=== PATIENT | female | born 1985 | race Caucasian/White ===

== ENCOUNTER 2017-01-23 18:56 | Inpatient (IN) | payer MEDICAID ==
[2017-01-23] MEDS ORDERED: SODIUM CHLORIDE 0.9% 1,000 ML IV ONE (19:19)
[2017-01-23] MEDS ORDERED: ONDANSETRON 4 MG/2 ML VIAL ONE (19:41)
[2017-01-23] MEDS ORDERED: INSULIN REGULAR HUMAN 100 UNIT/1 ML 10 ML MDV SUBQ STA (20:18)
[2017-01-23] MEDS ORDERED: NICOTINE 21 MG PATCH TOP ONE (20:20)
[2017-01-23] MEDS ORDERED: NICOTINE 21 MG PATCH TOP STA (20:23)
[2017-01-23] MEDS ORDERED: SODIUM CHLORIDE FLUSH 0.9% 10 ML SYRINGE IVP PRN (20:27)
[2017-01-23] MEDS ORDERED: INSULIN 70/30 HUMAN 100 UNIT/1 ML 10 ML MDV SUBQ ONE ×2 (20:29→20:33)
[2017-01-23] MEDS ORDERED: INSULIN GLARGINE 300 UNIT/3 ML PEN SUBQ SCH (21:00)
[2017-01-23] MEDS: HEPARIN 5,000 UNIT/ML VIAL SUBQ SCH (21:54)
[2017-01-23] MEDS: INSULIN ASPART 300 UNIT/3 ML PEN SUBQ SCH (21:54)
[2017-01-23] MEDS: SODIUM CHLORIDE 0.9% 1,000 ML IV SCH (21:55)
[2017-01-23] MEDS: SODIUM CHLORIDE FLUSH 0.9% 10 ML SYRINGE IVP SCH (21:56)
[2017-01-24] MEDS ORDERED: INSULIN REGULAR HUMAN 100 UNIT/1 ML 10 ML MDV SUBQ STA (01:11)
[2017-01-24] MEDS ORDERED: INSULIN REGULAR HUMAN 100 UNIT/1 ML 10 ML MDV ONE (01:19)
[2017-01-24] MEDS ORDERED: INSULIN REGULAR HUMAN 100 UNIT/1 ML 10 ML MDV SUBQ SCH (01:45)
[2017-01-24] MEDS: SODIUM CHLORIDE 0.9% 1,000 ML IV SCH ×2 (04:04→10:46)
[2017-01-24] MEDS: SODIUM CHLORIDE FLUSH 0.9% 10 ML SYRINGE IVP SCH ×3 (05:05→20:57)
[2017-01-24] MEDS ORDERED: ACETAMINOPHEN 325 MG TABLET PO PRN (07:57)
[2017-01-24] MEDS: INSULIN ASPART 300 UNIT/3 ML PEN SUBQ SCH ×5 (08:23→21:02)
[2017-01-24] MEDS: HEPARIN 5,000 UNIT/ML VIAL SUBQ SCH ×2 (09:06→20:59)
[2017-01-24] MEDS: POLYETHYLENE GLYCOL 3350 17 GM PACKET PO SCH (09:06)
[2017-01-24] MEDS: CHOLECALCIFEROL 1,000 UNIT TABLET PO SCH (12:02)
[2017-01-24] MEDS ORDERED: INSULIN GLARGINE 300 UNIT/3 ML PEN SUBQ SCH ×2 (16:00→21:00)
[2017-01-24] MEDS ORDERED: POTASSIUM CHLORIDE 20 MEQ TABLET PO STA (16:07)
[2017-01-24] MEDS ORDERED: SODIUM CHLORIDE 0.9% 1,000 ML IV SCH (17:00)
[2017-01-24] MEDS: NICOTINE 21 MG PATCH TOP SCH (20:59)
[2017-01-24] MEDS: CALCIUM CARBONATE CHEW 500 MG TABLET PO SCH (21:00)
[2017-01-24] MEDS: INSULIN GLARGINE 300 UNIT/3 ML PEN SUBQ SCH (21:00)
[2017-01-25] MEDS: SODIUM CHLORIDE FLUSH 0.9% 10 ML SYRINGE IVP SCH (06:12)
[2017-01-25] MEDS ORDERED: POTASSIUM CHLORIDE 20 MEQ TABLET PO SCH (08:00)
[2017-01-25] MEDS: POLYETHYLENE GLYCOL 3350 17 GM PACKET PO SCH (08:12)
[2017-01-25] MEDS: NICOTINE 21 MG PATCH TOP SCH (08:13)
[2017-01-25] MEDS: CHOLECALCIFEROL 1,000 UNIT TABLET PO SCH (08:14)
[2017-01-25] MEDS: CALCIUM CARBONATE CHEW 500 MG TABLET PO SCH (08:14)
[2017-01-25] MEDS: HEPARIN 5,000 UNIT/ML VIAL SUBQ SCH (08:17)
[2017-01-25] MEDS: INSULIN ASPART 300 UNIT/3 ML PEN SUBQ SCH ×4 (08:23→11:57)
[2017-01-25] MEDS: INSULIN GLARGINE 300 UNIT/3 ML PEN SUBQ SCH (08:25)
[2017-01-25] MEDS ORDERED: NICOTINE 21 MG PATCH TOP SCH (20:00)
== END 2017-01-25 13:00 | disposition home or self-care (01) | DRG 638 ==
DX: E11.65 Type 2 diabetes mellitus with hyperglycemia (principal); F15.20 Other stimulant dependence, uncomplicated; E87.1 Hypo-osmolality and hyponatremia; E87.6 Hypokalemia; E86.0 Dehydration; F17.210 Nicotine dependence, cigarettes, uncomplicated

== ENCOUNTER 2017-01-26 15:04 | Outpatient (CLI) | payer MEDICAID | END 2017-01-26 15:05 | disposition home or self-care (01) | DX: E11.65 Type 2 diabetes mellitus with hyperglycemia (principal) ==

== ENCOUNTER 2018-02-20 04:37 | Emergency (ER) | payer MEDICAID ==
--- NOTE | 2018-02-20 04:52 | ED Physician Documentation ---
History of Present Illness - Stated complaint Stated Complaint: LT ARM,LT JAW STIFFNESS - Chief complaint Chief Complaint: Ext Problem - History obtained from History obtained from: Patient - History of Present Illness Timing: How many weeks ago (2-3 weeks but worse past few days) Pain level max: 0 Pain level now: 0 Improved by: no ameliorating factors Worsened by: movement - Additonal information Additional information: c/o few weeks of left elbow and right knee swelling and stiffness without significant pain. she has run out of her lisinopril 5mg rx (she says this was prescribed for "kidney protection" and not high blood pressure), as well as her insulin (she takes both novolog and lantus; she still has some but has not been storing it properly and thus questionable efficacy). 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 HEENT: None Psych: None Musculoskeletal: None Derm: None - Past Surgical History Past Surgical History: No - Present Medications Home Medications: Ambulatory Orders Medication Instructions Recorded Confirmed Blood Sugar Diagnostic [Glucometer 1 each ACHS #100 strip 01/25/17 Strips] Blood-Glucose Meter [Glucometer] 1 each MC DAILY #1 each 01/25/17 Calcium Carbonate [Tums (Calcium 500 mg PO DAILY #30 tablet 01/25/17 Carbonate 500mg)] Insulin Aspart [NovoLOG] 5 unit SUBQ TIDWM #1 pen 01/25/17 Insulin Glargine [Lantus Solostar] 12 unit SUBQ BID #1 pen 01/25/17 Lancets 1 each ACHS #100 each 01/25/17 Nicotine 21 mg Patch [Nicoderm] 1 patch TOP DAILY #28 patch 01/25/17 Insulin Aspart [NovoLOG] 5 unit SUBQ TIDWM #1 pen 02/20/18 Insulin Glargine [Lantus Solostar] 12 unit SUBQ BID #1 pen 02/20/18 Lisinopril 5 mg PO DAILY #30 tablet 02/20/18 - Allergies Allergies/Adverse Reactions: Allergies Allergy/AdvReac Type Severity Reaction Status Date / Time No Known Drug Allergies Allergy Verified 02/20/18 04:48 - Social History Does the pt smoke?: Yes Smoking Status: Current every day smoker Does the pt drink ETOH?: Yes Does the pt have substance abuse?: Yes - Immunizations Immunizations are current?: Yes - POLST Patient has POLST: No PD ED PE NORMAL - Vitals Vital signs reviewed: Yes - General General: Alert and oriented X 3, No acute distress, Well developed/nourished - HEENT HEENT: Moist mucous membranes - Derm Derm: Normal color, Warm and dry, No rash - Extremities Extremities: No tenderness to palpate, Normal ROM s pain, Other (subtle swelling left elbow posterolateral aspect that is nontender and without erythema , crepitus, or hot to touch) - Neuro Neuro: Alert and oriented X 3, No motor deficit, No sensory deficit Results - Vitals Vitals: Oxygen O2 Source Room air - Labs Labs: Laboratory Tests 02/20/18 04:52 POC Whole Bld Glucose 310 H PD MEDICAL DECISION MAKING - ED course Complexity details: considered differential, d/w patient ED course: provided new prescriptions for her lantus, novolog, and lisinopril. FSBS is 310. She had taken a dose of insulin shortly before arriving. She expressed concern that her joint swelling and stiffness is due to high blood sugar and I reassured her that this is not a symptom c/w hyperglycemia. She asked about checking for urine ketones, which is reasonable and thus was ordered. However, she subsequently decided against it and thus order was cancelled. Her HPI and exam do not suggest DKA nor need for emergent testing or treatment. I emphasized the need for her to fill the prescriptions as soon as the pharmacy is open and start taking as prescribed. Departure - Departure Disposition: Home, Self Care Clinical Impression: Hyperglycemia Joint pain Qualifiers: Joint pain location: elbow Laterality: left Qualified Code(s): M25.522 - Pain in left elbow Condition: Good Instructions: ED Joint Pain, ED Hyperglycemia Diabetic Follow-Up: [facility] [Provider Group] [facility] [Provider Group] Prescriptions: Insulin Aspart [NovoLOG] 5 unit SUBQ TIDWM #1 pen Insulin Glargine [Lantus Solostar] 12 unit SUBQ BID #1 pen Lisinopril 5 mg PO DAILY #30 tablet Discharge Date/Time: 02/20/18 05:37
[2018-02-20 05:37] VITALS: BP 110/75
== END 2018-02-20 05:37 | disposition home or self-care (01) ==
LOC: ED 04:37
DX: E11.65 Type 2 diabetes mellitus with hyperglycemia (principal); Z79.4 Long term (current) use of insulin; F17.200 Nicotine dependence, unspecified, uncomplicated; M25.522 Pain in left elbow
CPT/HCPCS: 99283

== ENCOUNTER 2018-09-21 08:00 | Outpatient (CLI) | payer MEDICAID ==
[2018-09-21 12:48] LABS: BASOPHILS % (AUTO) 0.3 %; EOSINOPHILS # (AUTO) 0.2 10^3/uL (0.0-0.7); EOSINOPHILS % (AUTO) 2.6 %; HGB - HEMOGLOBIN 15.5 g/dL (12.0-16.0); LYMPHOCYTES # (AUTO) 3.1 10^3/uL (1.5-3.5); LYMPHOCYTES % (AUTO) 41.4 %; MEAN CORPUSCULAR HEMOGLOBIN 30.2 pg (27.0-31.0); MEAN CORPUSCULAR HGB CONC 33.2 g/dL (32.0-36.0); MEAN CORPUSCULAR VOLUME 90.9 fL (81.0-99.0); MEAN PLATELET VOLUME 8.5 fL (7.9-10.8); MONOCYTES # (AUTO) 0.6 10^3/uL (0.0-1.0); MONOCYTES % (AUTO) 8.3 %; NEUTROPHILS # (AUTO) 3.6 10^3/uL (1.5-6.6); NEUTROPHILS % (AUTO) 47.4 %; PLT - PLATELET COUNT 306 10^3/uL (130-450); RED BLOOD COUNT 5.14 10^6/uL (4.20-5.40); RED CELL DISTRIBUTION WIDTH 13.8 % (12.0-15.0); WHITE BLOOD COUNT 7.6 x10^3/uL (4.8-10.8)
[2018-09-21 12:51] LABS: CALCIUM 9.1 mg/dL (8.5-10.3); CREATININE 0.6 mg/dL (0.4-1.0)
[2018-09-21 14:13] LABS: HB2 TOTAL 16.6 g/dL; HEMOGLOBIN A1C 1.69 g/dL; HEMOGLOBIN A1C % 11.5 % (4.6-6.2)
== END 2018-09-21 23:59 | disposition home or self-care (01) ==
LOC: LAB.N 08:00
PROVIDERS: ATTEND Physician Assistant Medical
DX: Z79.4 Long term (current) use of insulin (principal); R73.9 Hyperglycemia, unspecified
CPT/HCPCS: 36415; 80048; 81599; 83036; 84681; 85025

== ENCOUNTER 2018-12-10 13:58 | Outpatient (CLI) | payer MEDICAID | END 2018-12-10 13:59 | disposition EMS.NT | LOC: EMS 13:58 | PROVIDERS: ATTEND Surgery | DX: Z03.89 Encounter for observation for other suspected diseases and conditions ruled out (principal) ==

== ENCOUNTER 2019-05-01 11:55 | Emergency (ER) | payer MEDICAID ==
[2019-05-01 12:32] LABS: BILIRUBIN,URINE NEGATIVE (NEGATIVE); GLUCOSE, URINE (UA) >=1000 mg/dL (NEGATIVE); KETONES,URINE (UA) 15 mg/dL (NEGATIVE); LEUKOCYTE ESTERASE, URINE NEGATIVE (NEGATIVE); NITRITE,URINE NEGATIVE (NEGATIVE); OCCULT BLOOD,URINE NEGATIVE (NEGATIVE); PH,URINE 5.5 PH (5.0-7.5); PROTEIN,URINE NEGATIVE (NEGATIVE); UROBILINOGEN,URINE 0.2 (NORMAL) E.U./dL (NORMAL)
[2019-05-01 12:34] LABS: CLARITY,URINE CLEAR (CLEAR)
[2019-05-01] MEDS ORDERED: SODIUM CHLORIDE 0.9% 1,000 ML IV ONE (12:47)
[2019-05-01 12:53] LABS: VBG PCO2 46.4 mmHg (41-51); VBG PH 7.318 (7.31-7.41)
[2019-05-01 12:54] LABS: VBG BASE EXCESS -3.1 mmol/L (-2 - +2); VBG PO2 30.3 mmHg (25-47); VBG TOTAL CO2 24.7 mmol/L (24-29)
[2019-05-01 13:03] LABS: CALCIUM 9.5 mg/dL (8.5-10.3); CREATININE 0.7 mg/dL (0.4-1.0)
[2019-05-01] MEDS ORDERED: INSULIN REGULAR HUMAN 100 UNIT/1 ML 10 ML MDV IVP STA (13:06)
[2019-05-01 15:09] VITALS: BP 110/74
--- NOTE | 2019-05-01 15:15 | ED Physician Documentation ---
History of Present Illness - Stated complaint Stated Complaint: MED REFILL - Chief complaint Chief Complaint: General - History obtained from History obtained from: Patient - History of Present Illness Timing: How many days ago (2) Severity Comments: moderate hyperglyemia Quality: no pain Radiates to: no radiation Improved by: nothing Worsened by: not having her insulin Associated symptoms: polyuria, polydypsia, feelings of a dry mouth and dehydration - Treatment prior to arrival Treatment prior to arrival: none - Additonal information Additional information: 34 y/o F with Type 1 diabetes on Lantus and novolog, reports she lost her medications 4 days ago and has not had her insulin thus having high blood sugars. 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 HEENT: None Psych: None Musculoskeletal: None Derm: None - Past Surgical History Past Surgical History: No - Present Medications Home Medications: Ambulatory Orders Medication Instructions Recorded Confirmed Blood Sugar Diagnostic [Glucometer 1 each ACHS #100 strip 01/25/17 Strips] Blood-Glucose Meter [Glucometer] 1 each MC DAILY #1 each 01/25/17 RX: Calcium Carbonate [Tums 500 mg PO DAILY #30 tablet 01/25/17 (Calcium Carbonate 500mg)] RX: Insulin Aspart [NovoLOG] 5 unit SUBQ TIDWM #1 pen 01/25/17 RX: Insulin Glargine [Lantus 12 unit SUBQ BID #1 pen 01/25/17 Solostar] RX: Lancets 1 each ACHS #100 each 01/25/17 RX: Nicotine 21 mg Patch [Nicoderm] 1 patch TOP DAILY #28 patch 01/25/17 Insulin Aspart [NovoLOG] 5 unit SUBQ TIDWM #1 pen 02/20/18 Insulin Glargine [Lantus Solostar] 12 unit SUBQ BID #1 pen 02/20/18 RX: Lisinopril 5 mg PO DAILY #30 tablet 02/20/18 Insulin Aspart [NovoLOG] 5 unit SUBQ TIDWM #1 pen 05/01/19 Insulin Glargine [Lantus Solostar] 25 unit SQ QPM #1 pen 05/01/19 - Allergies Allergies/Adverse Reactions: Allergies Allergy/AdvReac Type Severity Reaction Status Date / Time No Known Drug Allergies Allergy Verified 02/20/18 04:48 - Social History Does the pt smoke?: Yes Smoking Status: Current every day smoker Does the pt drink ETOH?: Yes Does the pt have substance abuse?: Yes - Immunizations Immunizations are current?: Yes - POLST Patient has POLST: No PD ED PE NORMAL - Vitals Vital signs reviewed: Yes - General General: Alert and oriented X 3, No acute distress, Well developed/nourished - HEENT HEENT: Atraumatic - Neck Neck: Supple, no meningeal sign, No JVD - Cardiac Cardiac: RRR, No murmur, No gallop, No rub - Respiratory Respiratory: No respiratory distress, Clear bilaterally - Abdomen Abdomen: Soft, Non tender, Non distended - Female Female : Deferred - Rectal Rectal: Deferred - Derm Derm: Normal color, Warm and dry, No rash - Extremities Extremities: No deformity, No edema - Neuro Neuro: Alert and oriented X 3 Eye Opening: Spontaneous Motor: Obeys Commands Verbal: Oriented GCS Score: 15 - Psych Psych: Normal mood, Normal affect Results - Vitals Vitals: Vital Signs - 24 hr 05/01/19 05/01/19 12:01 15:09 Temperature 36.3 C L Heart Rate 86 67 Respiratory 18 19 Rate Blood Pressure 115/77 110/74 O2 Saturation 99 98 Oxygen O2 Source Room air - Labs Labs: Laboratory Tests 05/01/19 05/01/19 05/01/19 12:05 12:19 12:34 VBG pH VBG pCO2 VBG pO2 VBG HCO3 VBG Total CO2 VBG O2 Saturation VBG Base Excess Sodium 134 L Potassium 4.1 Chloride 95 L Carbon Dioxide 27 Anion Gap 12.0 BUN 14 Creatinine 0.7 Estimated GFR (MDRD) 96 Glucose 498 H POC Whole Bld Glucose 475 H Calcium 9.5 Urine Color LT. YELLOW Urine Clarity CLEAR Urine pH 5.5 Ur Specific X[place] <=1.005 Urine Protein NEGATIVE Urine Glucose (UA) >=1000 H Urine Ketones 15 H Urine Occult Blood NEGATIVE Urine Nitrite NEGATIVE Urine Bilirubin NEGATIVE Urine Urobilinogen 0.2 (NORMAL) Ur Leukocyte Esterase NEGATIVE 05/01/19 05/01/19 05/01/19 12:34 13:28 15:08 VBG pH 7.318 VBG pCO2 46.4 VBG pO2 30.3 VBG HCO3 23.3 VBG Total CO2 24.7 VBG O2 Saturation 57.2 L VBG Base Excess -3.1 L Sodium Potassium Chloride Carbon Dioxide Anion Gap BUN Creatinine Estimated GFR (MDRD) Glucose POC Whole Bld Glucose 378 H 309 H Calcium Urine Color Urine Clarity Urine pH Ur Specific Xenia Urine Protein Urine Glucose (UA) Urine Ketones Urine Occult Blood Urine Nitrite Urine Bilirubin Urine Urobilinogen Ur Leukocyte Esterase no anion gap or acidosis present. PD MEDICAL DECISION MAKING - ED course Complexity details: reviewed results, re-evaluated patient, considered differential, d/w patient ED course: ddx - DKA, HHNK, hyperglycemia with diabetes and dehydration, ketonuria 34 y/o F with hx of DM type 1 missed several doses of insulin due to loss of meds. Pt not in DKA or HHNK. She is overall well appearing she is not acidotic and has no anion gap. Her blood sugars improved with fluids and insulin here. She states she can obtain syringes and supplies but needs a med refill. Refilled pt's insulin rx here and pt is stable for outpt f/u Departure - Departure Disposition: Home, Self Care Clinical Impression: Hyperglycemia due to type 1 diabetes mellitus Condition: Stable Record reviewed to determine appropriate education?: Yes Instructions: Diabetes Sick Day Plan Follow-Up: Provider,Other [Primary Care Provider] - Prescriptions: Insulin Aspart [NovoLOG] 5 unit SUBQ TIDWM #1 pen Insulin Glargine [Lantus Solostar] 25 unit SQ QPM #1 pen Discharge Date/Time: 05/01/19 15:27
== END 2019-05-01 15:27 | disposition home or self-care (01) ==
LOC: ED 11:55
DX: E10.65 Type 1 diabetes mellitus with hyperglycemia (principal); T38.3X6A Underdosing of insulin and oral hypoglycemic [antidiabetic] drugs, initial encounter; Z91.128 Patient's intentional underdosing of medication regimen for other reason; Z76.0 Encounter for issue of repeat prescription; Z79.4 Long term (current) use of insulin; F17.200 Nicotine dependence, unspecified, uncomplicated
CPT/HCPCS: 36415; 80048; 81003; 82803; 96360; 99283; J1815

== ENCOUNTER 2019-06-30 09:02 | Emergency (ER) | payer MEDICAID ==
[2019-06-30 09:08] VITALS: BP 116/77
[2019-06-30] MEDS ORDERED: BACITRACIN ZINC OINT 14 GM TOP STA (09:14)
--- NOTE | 2019-06-30 09:17 | ED Physician Documentation ---
History of Present Illness - Stated complaint Stated Complaint: FINGER SWOLLEN - Chief complaint Chief Complaint: General - History obtained from History obtained from: Patient, Family - History of Present Illness Timing: How many days ago (3) Pain level max: 4 Pain level now: 3 - Additonal information Additional information: Left third digit pain, just to the right side of the fingernail. Worse with palpation. Better with rest. Mild swelling. No drainage. 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 HEENT: None Psych: None Musculoskeletal: None Derm: None - Past Surgical History Past Surgical History: No - Present Medications Home Medications: Ambulatory Orders Medication Instructions Recorded Confirmed Blood Sugar Diagnostic [Glucometer 1 each ACHS #100 strip 01/25/17 Strips] Blood-Glucose Meter [Glucometer] 1 each MC DAILY #1 each 01/25/17 Calcium Carbonate [Tums (Calcium 500 mg PO DAILY #30 tablet 01/25/17 Carbonate 500mg)] Insulin Aspart [NovoLOG] 5 unit SUBQ TIDWM #1 pen 01/25/17 Insulin Glargine [Lantus Solostar] 12 unit SUBQ BID #1 pen 01/25/17 Lancets 1 each ACHS #100 each 01/25/17 Nicotine 21 mg Patch [Nicoderm] 1 patch TOP DAILY #28 patch 01/25/17 Insulin Aspart [NovoLOG] 5 unit SUBQ TIDWM #1 pen 02/20/18 Insulin Glargine [Lantus Solostar] 12 unit SUBQ BID #1 pen 02/20/18 Lisinopril 5 mg PO DAILY #30 tablet 02/20/18 Insulin Aspart [NovoLOG] 5 unit SUBQ TIDWM #1 pen 05/01/19 Insulin Glargine [Lantus Solostar] 25 unit SQ QPM #1 pen 05/01/19 Bacitracin Zinc Oint 1 applic TOP BID #1 tube 06/30/19 - Allergies Allergies/Adverse Reactions: Allergies Allergy/AdvReac Type Severity Reaction Status Date / Time No Known Drug Allergies Allergy Verified 06/30/19 09:08 - Social History Does the pt smoke?: Yes Smoking Status: Current every day smoker Does the pt drink ETOH?: Yes Does the pt have substance abuse?: Yes - Immunizations Immunizations are current?: Yes - POLST Patient has POLST: No PD ED PE NORMAL - Vitals Vital signs reviewed: Yes - General General: Alert and oriented X 3, No acute distress - Derm Derm: Warm and dry - Extremities Extremities: Other (Tender to palpation to the medial aspect of the left third digit fingernail. Minimal swelling. No drainage.) - Neuro Neuro: Alert and oriented X 3 Results - Vitals Vitals: Vital Signs - 24 hr 06/30/19 09:06 Temperature 36.2 C L Heart Rate 92 Respiratory 16 Rate Blood Pressure 116/77 O2 Saturation 99 Oxygen O2 Source Room air PD MEDICAL DECISION MAKING - ED course Complexity details: considered differential, d/w patient ED course: Patient with what appears to be an early paronychia versus an early ingrowing nail. Will trial on topical antibiotics and warm soaks to see if this improves her symptoms. If not, we will plan on drainage. There is not appear to be any purulent material to drain at this time. Departure - Departure Disposition: 01 Home, Self Care Clinical Impression: Paronychia Condition: Good Instructions: ED Fingernail Infec Follow-Up: your,doctor in 3 days for wound check [Other] Prescriptions: Bacitracin Zinc Oint 1 applic TOP BID #1 tube Comments: Apply the bacitracin as instructed. Soak the area 2-3 times a day in warm water for approximately 5 minutes at a time. Return if you worsen. This should improve over the next 2-3 days. Follow-up with your doctor in 3 days for a wound check.
== END 2019-06-30 09:25 | disposition home or self-care (01) ==
LOC: ED 09:02
DX: L03.012 Cellulitis of left finger (principal); F17.200 Nicotine dependence, unspecified, uncomplicated
CPT/HCPCS: 99282; 99283; A9270